=== PATIENT | female | born 1935 | race Caucasian/White ===

== ENCOUNTER 2022-02-12 13:26 | Emergency (ER) | payer MEDICARE, OTHER ==
[~2022-02-12] VITALS: Ht 157.5 cm; Wt 59.0 kg
[~2022-02-12 13:26] MED LIST: ASPIRIN EC81 MG PO; ATENOLOL100 MG PO; AZOPT10 ML OD; CALCIUM500 MG PO; GLUCOPHAGE500 MG PO; GLUCOSAMINE H1500 MG PO; LIPITOR40 MG PO; LISINOPRIL5 MG PO; MULTIPLE VITAM1 EACH PO; NITROSTAT0.4 MG SL; OPTIFLEX-C400 MG PO; RECLAST 55 MG/100 M IV; VITAMIN B12-FO1 EACH PO; VITAMIN C1000 M1 PO; VITAMIN D400 UNI1 PO; VITAMIN E200 UNI3 PO; XALATAN2.5 ML OU; ZOFRAN ODT8 MG PO
[2022-02-12] MEDS ORDERED: HYDROCHLOROTH12.5 MG PO (15:55)
--- NOTE | 2022-02-13 12:56 | EKG ---
[facility] [address] [facility] [place] [address] Signed Normal sinus rhythm Normal ECG No previous ECGs available Confirmed by ELBERT CLAROS MD ([id number]) on 02/13/2022 12:56:12 PM Electronically Signed By: ELBERT CLAROS MD 02/13/22 1256 PATIENT NAME: DALLAS MAYFIELD Electrocardiogram DATE OF : 39 PHYSICIAN: ELBERT CLAROS MD REPORT #: [id number] REPORT IS CONFIDENTIAL AND NOT TO BE RELEASED WITHOUT AUTHORIZATION
== END 2022-02-12 17:58 | disposition home or self-care (01) ==
LOC: ED 13:26
DX: E87.1 Hypo-osmolality and hyponatremia (principal); T50.2X5A Adverse effect of carbonic-anhydrase inhibitors, benzothiadiazides and other diuretics, initial encounter; I10 Essential (primary) hypertension; E11.9 Type 2 diabetes mellitus without complications; Z87.891 Personal history of nicotine dependence; Z88.0 Allergy status to penicillin; Z88.5 Allergy status to narcotic agent; Z79.899 Other long term (current) drug therapy; Z20.822 Contact with and (suspected) exposure to COVID-19
CPT/HCPCS: 36415; 80053; 81001; 83735; 85025; 87502; 93005; 93010; 96361; 96374; 99284-25; C9803; J2405; J7040; U0003

== ENCOUNTER 2023-04-13 12:45 | Observation (INO) | payer MEDICARE, OTHER ==
[2023-04-12 17:00] VITALS: BP 126/50
[~2023-04-13] VITALS: Ht 157.5 cm; Wt 59.8 kg
[2023-04-13] VITALS (9 sets, daily range): BP systolic 113–139; BP diastolic 44–107
--- OUTSIDE RECORDS SUMMARY | ~2023-04-13 | XMS | Continuity of Care Document ---
Demographics + + + | Address | [address] | | | [place] [address] | + + + | Preferred Language | Unknown | + + + | Marital Status | | + + + | Gnosticism Affiliation | Unknown | + + + | Race | White | + + + | Ethnic Group | Not or | + + + Author + + + | Author | [facility] | + + + | Organization | [facility] | + + + | Address | [address] | | | [place] [address] | + + + | Phone | | + + + Care Team Providers + + + + | Care Laborer Hoisting Name | Role | Phone | + + + + Unavailable | Unavailable | + + + + Unavailable | Unavailable | + + + + Allergies and Intolerances + + + + + + | date | description | facility | reaction | severity | + + + + + + | (no date) | Mild | [facility] | (no reaction) | (no severity) | | | [facility] | | | + + + + + + | (no date) | Rash | [facility] | (no reaction) | (no severity) | | | | [facility] | | | + + + + + + | (no date) | Vomiting | [facility] | (no reaction) | (no severity) | | | | [facility] | | | + + + + + + | (no date) | Penicillins | [facility] | (no reaction) | (no severity) | + + + + + + | (no date) | opium | [facility] | (no reaction) | (no severity) | | | (anthroposophic | | | | | | ) | | | | + + + + + + Encounters No information. Functional Status No information. Immunizations No information. Medications + + + + | date | description | facility | + + + + | 2022-02-15 00:00 | CHONDROITIN SULFATE A | [facility] | | | SODIUM | | + + + + | 2022-02-15 00:00 | ATENOLOL | [facility] | + + + + | 2022-02-15 00:00 | CYANOCOBALAMIN/FOLIC ACID | [facility] | + + + + | 2022-02-15 00:00 | ERGOCALCIFEROL (VITAMIN | [facility] | | | D2) | | + + + + | 2022-02-15 00:00 | NITROGLYCERIN | [facility] | + + + + | 2022-02-15 00:00 | BRINZOLAMIDE | [facility] | + + + + | 2022-02-15 00:00 | CALCIUM CARBONATE | [facility] | + + + + | 2022-02-15 00:00 | ASPIRIN | [facility] | + + + + | 2022-02-15 00:00 | LISINOPRIL | [facility] | + + + + | 2022-02-15 00:00 | ASCORBIC ACID | [facility] | + + + + | 2022-02-15 00:00 | HYDROCHLOROTHIAZIDE | [facility] | + + + + | 2022-02-15 00:00 | LATANOPROST | [facility] | + + + + | 2022-02-15 00:00 | ATORVASTATIN | [facility] | + + + + | 2022-02-15 00:00 | ZOLEDRONIC | [facility] | | | ACID/MANNITOL/WATER | | + + + + | 2022-02-15 00:00 | GLUCOSAMINE HCL | [facility] | + + + + | 2022-02-15 00:00 | metFORMIN HCL | [facility] | + + + + | 2013-10-30 00:00 | ONDANSETRON | [facility] | + + + + Problems + + + + | date | description | facility | + + + + | 2022-02-12 00:00 | Hyponatremia | [facility] | + + + + | 2022-02-12 00:00 | Adverse effect of drug | [facility] | + + + + Procedures No information. Results/Labs +--------+--------+ +---------+--------+---------+ | test | date | facility | value | unit | notes | +--------+--------+ +---------+--------+---------+ + + | Result panel 1 | + + + + + +-------+ + + | | 2022-02-12 | [facility] | 8.7 | (missing) | (missing) | | (unavailable | 14:20 | [facility] | | | | + + + +-------+ + + + + | Result panel 2 | + + + + + +--------+ + + | | 2022-02-12 | [facility] | 68.8 | (missing) | (missing) | | (unavailable | 14:20 | [facility] | | | | + + + +--------+ + + + + | Result panel 3 | + + + + + +--------+ + + | | 2022-02-12 | [facility] | 16.7 | (missing) | (missing) | | (unavailable | 14:20 | [facility] | | | | + + + +--------+ + + + + | Result panel 4 | + + + + + +--------+ + + | | 2022-02-12 | [facility] | 12.4 | (missing) | (missing) | | (unavailable | 14:20 | [facility] | | | | + + + +--------+ + + + + | Result panel 5 | + + + + + +-------+ + + | | 2022-02-12 | [facility] | 1.8 | (missing) | (missing) | | (unavailable | 14:20 | [facility] | | | | + + + +-------+ + + + + | Result panel 6 | + + + + + +-------+ + + | | 2022-02-12 | [facility] | 0.3 | (missing) | (missing) | | (unavailable | 14:20 | [facility] | | | | + + + +-------+ + + + + | Result panel 7 | + + + + + +--------+ + + | | 2022-02-12 | [facility] | 4.42 | (missing) | (missing) | | (unavailable | 14:20 | [facility] | | | | + + + +--------+ + + + + | Result panel 8 | + + + + + +-------+---------+ + | | 2022-02-12 | [facility] | 134 | mg/dL | (missing) | | (unavailable | 14:20 | [facility] | | | | + + + +-------+---------+ + + + | Result panel 9 | + + + + + +------+---------+ + | | 2022-02-12 | [facility] | 20 | mg/dL | (missing) | | (unavailable | 14:20 | [facility] | | | | + + + +------+---------+ + + + | Result panel 10 | + + + + + +--------+---------+ + | | 2022-02-12 | [facility] | 0.99 | mg/dL | (missing) | | (unavailable | 14:20 | [facility] | | | | + + + +--------+---------+ + + + | Result panel 11 | + + + + + +--------+ + + | | 2022-02-12 | [facility] | 13.4 | (missing) | (missing) | | (unavailable | 14:20 | [facility] | | | | + + + +--------+ + + + + | Result panel 12 | + + + + + +------+ + + | | 2022-02-12 | [facility] | 56 | (missing) | (missing) | | (unavailable | 14:20 | [facility] | | | | + + + +------+ + + + + | Result panel 13 | + + + + + +---------+ + + | | 2022-02-12 | [facility] | 20.20 | (missing) | (missing) | | (unavailable | 14:20 | [facility] | | | | + + + +---------+ + + + + | Result panel 14 | + + + + + +-------+ + + | | 2022-02-12 | [facility] | 123 | (missing) | (missing) | | (unavailable | 14:20 | [facility] | | | | + + + +-------+ + + + + | Result panel 15 | + + + + + +-------+ + + | | 2022-02-12 | [facility] | 3.5 | (missing) | (missing) | | (unavailable | 14:20 | [facility] | | | | + + + +-------+ + + + + | Result panel 16 | + + + + + +------+ + + | | 2022-02-12 | [facility] | 88 | (missing) | (missing) | | (unavailable | 14:20 | [facility] | | | | + + + +------+ + + + + | Result panel 17 | + + + + + +------+ + + | | 2022-02-12 | [facility] | 26 | (missing) | (missing) | | (unavailable | 14:20 | [facility] | | | | + + + +------+ + + + + | Result panel 18 | + + + + + +--------+ + + | | 2022-02-12 | [facility] | 12.5 | (missing) | (missing) | | (unavailable | 14:20 | [facility] | | | | + + + +--------+ + + + + | Result panel 19 | + + + + + +-------+---------+ + | | 2022-02-12 | [facility] | 9.6 | mg/dL | (missing) | | (unavailable | 14:20 | [facility] | | | | + + + +-------+---------+ + + + | Result panel 20 | + + + + + +-------+---------+ + | | 2022-02-12 | [facility] | 1.6 | mg/dL | (missing) | | (unavailable | 14:20 | [facility] | | | | + + + +-------+---------+ + + + | Result panel 21 | + + + + + +-------+ + + | | 2022-02-12 | [facility] | 6.9 | (missing) | (missing) | | (unavailable | 14:20 | [facility] | | | | + + + +-------+ + + + + | Result panel 22 | + + + + + +--------+ + + | | 2022-02-12 | [facility] | 38.2 | (missing) | (missing) | | (unavailable | 14:20 | [facility] | | | | + + + +--------+ + + + + | Result panel 23 | + + + + + +-------+ + + | | 2022-02-12 | [facility] | 3.4 | (missing) | (missing) | | (unavailable | 14:20 | [facility] | | | | + + + +-------+ + + + + | Result panel 24 | + + + + + +-------+ + + | | 2022-02-12 | [facility] | 3.5 | (missing) | (missing) | | (unavailable | 14:20 | [facility] | | | | + + + +-------+ + + + + | Result panel 25 | + + + + + +--------+ + + | | 2022-02-12 | [facility] | 0.97 | (missing) | (missing) | | (unavailable | 14:20 | [facility] | | | | + + + +--------+ + + + + | Result panel 26 | + + + + + +-------+ + + | | 2022-02-12 | [facility] | 0.4 | (missing) | (missing) | | (unavailable | 14:20 | [facility] | | | | + + + +-------+ + + + + | Result panel 27 | + + + + + +------+ + + | | 2022-02-12 | [facility] | 26 | (missing) | (missing) | | (unavailable | 14:20 | [facility] | | | | + + + +------+ + + + + | Result panel 28 | + + + + + +------+ + + | | 2022-02-12 | [facility] | 23 | (missing) | (missing) | | (unavailable | 14:20 | [facility] | | | | + + + +------+ + + + + | Result panel 29 | + + + + + +------+ + + | | 2022-02-12 | [facility] | 70 | (missing) | (missing) | | (unavailable | 14:20 | [facility] | | | | + + + +------+ + + + + | Result panel 30 | + + + + + +--------+ + + | | 2022-02-12 | [facility] | 86.4 | (missing) | (missing) | | (unavailable | 14:20 | [facility] | | | | + + + +--------+ + + + + | Result panel 31 | + + + + + +--------+ + + | | 2022-02-12 | [facility] | 30.3 | (missing) | (missing) | | (unavailable | 14:20 | [facility] | | | | + + + +--------+ + + + + | Result panel 32 | + + + + + +--------+ + + | | 2022-02-12 | [facility] | 35.0 | (missing) | (missing) | | (unavailable | 14:20 | [facility] | | | | + + + +--------+ + + + + | Result panel 33 | + + + + + +--------+ + + | | 2022-02-12 | [facility] | 13.3 | (missing) | (missing) | | (unavailable | 14:20 | [facility] | | | | + + + +--------+ + + + + | Result panel 34 | + + + + + +-------+ + + | | 2022-02-12 | [facility] | 211 | (missing) | (missing) | | (unavailable | 14:20 | [facility] | | | | + + + +-------+ + + + + | Result panel 35 | + + + + + + + + + | | 2022-02-12 | [facility] | YELLOW | (missing) | (missing) | | (unavailable | 15:37 | [facility] | | | | + + + + + + + + + | Result panel 36 | + + + + + + + + + | | 2022-02-12 | [facility] | CLOUDY | (missing) | (missing) | | (unavailable | 15:37 | [facility] | | | | + + + + + + + + + | Result panel 37 | + + + + + + + + + | | 2022-02-12 | [facility] | NEGATIVE | (missing) | (missing) | | (unavailable | 15:37 | [facility] | | | | + + + + + + + + + | Result panel 38 | + + + + + + + + + | | 2022-02-12 | [facility] | NEGATIVE | (missing) | (missing) | | (unavailable | 15:37 | [facility] | | | | + + + + + + + + + | Result panel 39 | + + + + + + + + + | | 2022-02-12 | [facility] | NEGATIVE | (missing) | (missing) | | (unavailable | 15:37 | [facility] | | | | + + + + + + + + + | Result panel 40 | + + + + + +---------+ + + | | 2022-02-12 | [facility] | 1.015 | (missing) | (missing) | | (unavailable | 15:37 | [facility] | | | | + + + +---------+ + + + + | Result panel 41 | + + + + + + + + + | | 2022-02-12 | [facility] | NEGATIVE | (missing) | (missing) | | (unavailable | 15:37 | [facility] | | | | + + + + + + + + + | Result panel 42 | + + + + + +-------+ + + | | 2022-02-12 | [facility] | 6.0 | (missing) | (missing) | | (unavailable | 15:37 | [facility] | | | | + + + +-------+ + + + + | Result panel 43 | + + + + + + + + + | | 2022-02-12 | [facility] | NEGATIVE | (missing) | (missing) | | (unavailable | 15:37 | [facility] | | | | + + + + + + + + + | Result panel 44 | + + + + + + + + + | | 2022-02-12 | [facility] | NORMAL | (missing) | (missing) | | (unavailable | 15:37 | [facility] | | | | + + + + + + + + + | Result panel 45 | + + + + + + + + + | | 2022-02-12 | [facility] | NEGATIVE | (missing) | (missing) | | (unavailable | 15:37 | [facility] | | | | + + + + + + + + + | Result panel 46 | + + + + + + + + + | | 2022-02-12 | [facility] | NEGATIVE | (missing) | (missing) | | (unavailable | 15:37 | [facility] | | | | + + + + + + + + + | Result panel 47 | + + + + + + + + + | | 2022-02-12 | [facility] | NEGATIVE | (missing) | (missing) | | (unavailable | 15:59 | [facility] | | | | + + + + + + + + + | Result panel 48 | + + + + + + + + + | | 2022-02-12 | [facility] | NEGATIVE | (missing) | (missing) | | (unavailable | 15:59 | [facility] | | | | + + + + + + + + + | Result panel 49 | + + + + + + + + + | | 2022-02-12 | [facility] | NEGATIVE | (missing) | (missing) | | (unavailable | 15:59 | [facility] | | | | + + + + + + + + + | Result panel 50 | + + + + + + + + + | | 2022-02-12 | [facility] | NEGATIVE | (missing) | (missing) | | (unavailable | 15:59 | [facility] | | | | + + + + + + + Social History No information. Vital Signs + + + +---------+ | date | measurement | value | units | + + + +---------+ | 2022-02-12 00:00 | BMI | 23.8 | kg/m2 | + + + +---------+ | 2022-02-12 00:00 | BP_diastolic | 53 | mmHg | + + + +---------+ | 2022-02-12 00:00 | BP_systolic | 181 | mmHg | + + + +---------+ | 2022-02-12 00:00 | heart_rate | 58 | /min | + + + +---------+ | 2022-02-12 00:00 | height_metric | 157.48 | cm | + + + +---------+ | 2022-02-12 00:00 | height_standard | 62 | in | + + + +---------+ | 2022-02-12 00:00 | o2_saturation | 97 | % | + + + +---------+ | 2022-02-12 00:00 | respiration_rate | 16 | /min | + + + +---------+ | 2022-02-12 00:00 | temperature_metric | 36.89 | C | | | | | | + + + +---------+ | 2022-02-12 00:00 | | 98.4 | F | | | temperature_standar | | | | | d | | | + + + +---------+ | 2022-02-12 00:00 | weight_metric | 58.97 | kg | + + + +---------+ | 2022-02-12 00:00 | weight_standard | 130 | lb | + + + +---------+"
--- OUTSIDE RECORDS SUMMARY | ~2023-04-13 | XMS | Continuity of Care Document ---
Demographics + + + | Address | [address] | | | [place] [address] | + + + | Preferred Language | Unknown | + + + | Marital Status | | + + + | Zoroastrianism Affiliation | Unknown | + + + | Race | White | + + + | Ethnic Group | Not or | + + + Author + + + | Author | [facility] | + + + | Organization | [facility] | + + + | Address | [address] | | | [place] [address] | + + + | Phone | | + + + Care Team Providers + + + + | Care Die Welder Name | Role | Phone | + [...]
--- OUTSIDE RECORDS SUMMARY | ~2023-04-13 | XMS | Continuity of Care Document ---
Demographics + + + | Address | [address] | | | [place] [address] | + + + | Preferred Language | Unknown | + + + | Marital Status | | + + + | Shinto Affiliation | Unknown | + + + | Race | White | + + + | Ethnic Group | Not or | + + + Author + + + | Author | [facility] | + + + | Organization | [facility] | + + + | Address | [address] | | | [place] [address] | + + + | Phone | | + + + Care Team Providers + + + + | Care Lamination Builder Name | Role | Phone | + [...] 2022-02-15 00:00 | CHONDROITIN SULFATE A | [facility] | | | SODIUM | | + + + + | 2022-02-15 00:00 | ATENOLOL | [facility] | + + + + | 2022-02-15 00:00 | CYANOCOBALAMIN/FOLIC ACID | [facility] | + + + + | 2022-02-15 00:00 | ERGOCALCIFEROL (VITAMIN | [facility] | | | D2) | | + + + + | 2022-02-15 00:00 | NITROGLYCERIN | [facility] | + + + + | 2022-02-15 00:00 | BRINZOLAMIDE | [facility] | + + + + | 2022-02-15 00:00 | CALCIUM CARBONATE | [facility] | + + + + | 2022-02-15 00:00 | ASPIRIN | [facility] | + + + + | 2022-02-15 00:00 | LISINOPRIL | [facility] | + + + + | 2022-02-15 00:00 | ASCORBIC ACID | [facility] | + + + + | 2022-02-15 00:00 | HYDROCHLOROTHIAZIDE | [facility] | + + + + | 2022-02-15 00:00 | LATANOPROST | [facility] | + + + + | 2022-02-15 00:00 | ATORVASTATIN | [facility] | + + + + | 2022-02-15 00:00 | ZOLEDRONIC | [facility] | | | ACID/MANNITOL/WATER | | + + + + | 2022-02-15 00:00 | GLUCOSAMINE HCL | [facility] | + + + + | 2022-02-15 00:00 | metFORMIN HCL | [facility] | + + + + | 2013-10-30 00:00 | ONDANSETRON | [facility] | + + + + Problems + + + + | date | description | facility | + + + + | 2022-02-12 00:00 | Hyponatremia | [facility] | + + + + | 2022-02-12 00:00 | Adverse effect of drug | [facility] | + + + + Procedures [...]
[~2023-04-13 12:45] MED LIST changes: +HYDROCHLOROTH12.5 MG PO
[2023-04-13 13:01] LABS: BASOPHILS 0.2 % (0-2); EOSINOPHILS 0.3 % (0-6); HEMATOCRIT 35.6 % (35.0-50.0); MCH 30.5 (27-36); MCHC 33.6 g/dl (30-36); MCV 90.7 fl (81-99); MONOCYTES 1.3 % (0-12); NEUTROPHILS 90.2 % (39-80); PLATELET COUNT 157 K/uL (140-440); RBC 3.93 M/ul (4.3-5.7); RDW 13.7 (10.5-15.0)
[2023-04-13 13:15] LABS: ALBUMIN 2.9 g/dL (3.4-5.0); ALBUMIN/GLOBULIN RATIO 0.76 (1.1-2.4); BILIRUBIN, TOTAL 0.6 ng/dL (0.2-1.0); BUN/CREATININE RATIO 12.39 (6.0-28.6); CALCIUM 9.1 mg/dL (8.5-10.1); CREATININE, SERUM 1.21 mg/dL (0.55-1.02); MAGNESIUM 1.2 mg/dL (1.8-2.4); PROTEIN, TOTAL 6.7 g/dL (6.4-8.2)
[2023-04-13 13:31] LABS: LACTIC ACID, BLOOD 2.9 mmol/L (0.4-2.0)
[2023-04-13 13:42] LABS: BILIRUBIN, URINE NEGATIVE (negative); BLOOD/HGB, URINE SMALL (Negative); KETONE, URINE NEGATIVE (Negative); LEUK ESTERASE, URINE SMALL (negative); NITRITE, URINE POSITIVE (negative)
[2023-04-13 13:44] LABS: INFLUENZA B NAA NEGATIVE (NEGATIVE); RESPIRATORY SYNCYTIAL VIR NAA NEGATIVE (NEGATIVE)
[2023-04-13 13:49] LABS: BACTERIA, URINE 4+ /hpf (negative); CASTS, URINE NONE SEEN \\lpf; COLLECTION TYPE, URINE CLEAN CATCH; CRYSTALS, URINE NONE SEEN (0-1+); EPITHELIAL CELLS, URINE 0 /lpf (0-1+); REFLEX CULTURE, URINE Yes (No); WHITE BLOOD CELLS, URINE 41-50 /HPF (0-5)
[2023-04-13] MEDS ORDERED: LISINOPRIL10 MG PO (14:34)
[2023-04-14] VITALS: BP 111/41
[2023-04-14 05:18] LABS: BASOPHILS 0.3 % (0-2); EOSINOPHILS 1.3 % (0-6); HEMATOCRIT 30.9 % (35.0-50.0); HEMOGLOBIN 10.3 g/dL (12.0-18.0); LYMPHOCYTES 11.2 % (24-44); MCH 30.1 (27-36); MCHC 33.4 g/dl (30-36); MCV 89.9 fl (81-99); MONOCYTES 11.8 % (0-12); NEUTROPHILS 75.4 % (39-80); PLATELET COUNT 138 K/uL (140-440); RBC 3.44 M/ul (4.3-5.7); RDW 13.2 (10.5-15.0)
[2023-04-14 05:24] LABS: ANION GAP 13.7 (7-21); BUN/CREATININE RATIO 15.25 (6.0-28.6); CALCIUM 8.4 mg/dL (8.5-10.1); CREATININE, SERUM 1.18 mg/dL (0.55-1.02); POTASSIUM 3.7 mmol/L (3.5-5.1)
[2023-04-14 06:37] VITALS: BP 149/69
[2023-04-14 07:59] VITALS: BP 147/60
[2023-04-14 08:00] VITALS: BP 154/64
[2023-04-14 11:29] VITALS: BP 154/64
[2023-04-14] MEDS ORDERED: BACTRIM DS TAB1 EACH PO (13:07)
[2023-04-14 13:36] VITALS: BP 180/118
[2023-04-15] MEDS ORDERED: BACTRIM DS TAB1 EACH PO (13:05)
== END 2023-04-14 14:05 | disposition home or self-care (01) ==
LOC: ED 12:45 → CCU 12:47
PROVIDERS: Emergency Medicine; ADMIT Internal Medicine; ATTEND Internal Medicine
DX: N39.0 Urinary tract infection, site not specified (principal); E87.1 Hypo-osmolality and hyponatremia; I25.10 Atherosclerotic heart disease of native coronary artery without angina pectoris; I12.9 Hypertensive chronic kidney disease with stage 1 through stage 4 chronic kidney disease, or unspecified chronic kidney disease; E11.22 Type 2 diabetes mellitus with diabetic chronic kidney disease; N18.9 Chronic kidney disease, unspecified; Z88.0 Allergy status to penicillin; Z88.5 Allergy status to narcotic agent; Z95.5 Presence of coronary angioplasty implant and graft; Z79.899 Other long term (current) drug therapy; Z20.822 Contact with and (suspected) exposure to COVID-19
CPT/HCPCS: 36415; 71045; 80048; 80053; 81001; 83605; 83735; 85025; 87040; 87088; 87502; 96365; 96366; 96367; 99285-25; A9270; C9803; G0378; J0692; J1815; J7030; U0002